=== PATIENT | female | born 1965 | race Caucasian/White ===

== ENCOUNTER → 2018-10-12 | Outpatient (CLI) | payer MEDICAID ==
--- NOTE | 2018-10-16 10:57 | MM ---
Reason for exam: screening (asymptomatic). Last mammogram was performed 2 years and 10 months ago. History: Family history of breast cancer in maternal aunt at age 50. Taking progesterone for 1 month beginning at age 52. Physical Findings: A clinical breast exam by your physician is recommended on an annual basis and results should be correlated with mammographic findings. MG 3D Screening Mammo W/Cad Bilateral CC and MLO view(s) were taken. Prior study comparison: December 14, 2015, bilateral MG 3d screening mammo w/cad. May 21, 2010, bilateral digital screening mammogram. There are scattered fibroglandular densities. There is chronic nodularity in the right breast. No significant changes when compared with prior studies. ASSESSMENT: Negative, BI-RAD 1 RECOMMENDATION: Routine screening mammogram of both breasts in 1 year.
== END | disposition home or self-care (01) ==
LOC: RADMAMWWP 12:15
PROVIDERS: ATTEND Obstetrics & Gynecology
DX: Z12.31 Encounter for screening mammogram for malignant neoplasm of breast (principal)
CPT/HCPCS: 77063; 77067

== ENCOUNTER → 2019-01-08 | Outpatient (CLI) | payer MEDICAID ==
--- NOTE | 2019-01-08 08:53 | CT ---
EXAMINATION TYPE: CT angio chest DATE OF EXAM: 01/08/2019 COMPARISON: None HISTORY: 53-year-old female abnormal echocardiogram. Bicuspid aortic valve, aneurysm of aorta. TECHNIQUE: Contiguous axial scanning of the chest performed with IV Contrast, patient injected with 1 00 mL of Isovue 370. Coronal/sagittal MIP reconstructions performed. 3-D reconstructions generated on a dedicated independent workstation. CT DLP: 591.3 mGycm Automated exposure control for dose reduction was used. FINDINGS: Heart normal size without pericardial effusion. Mild aortic valvular calcifications. The morphology is not well evaluated on the current study. Aortic root measures 3.2 cm. Ascending aorta measures 4.3 cm. Proximal arch is ectatic at 3.7 cm. Conventional branching anatomy. Distal arch measures 2.5 cm. Upper descending thoracic aorta normal at 2.4 cm. Lower descending thoracic aorta normal at 2.3 cm. No thoracic lymphadenopathy by CT size criteria. Evaluation of the lungs show some stringy areas of atelectasis without consolidation or pleural effus ion. 5 mm inferior lingular pulmonary nodule, axial image 92. Visualized upper abdomen shows a tiny hilar splenule and some possible layering calculi in the gallbl adder. Bones: Mild endplate spondylosis lower thoracic spine. No osseous destructive process. IMPRESSION: 1. MILD AORTIC VALVULAR CALCIFICATIONS. THE BICUSPID MORPHOLOGY ITSELF IS NOT WELL EVALUATED ON THIS NONGATED STUDY. 2. ANEURYSMAL ASCENDING AORTA (4.3 CM) AND ECTATIC PROXIMAL ARCH (3.7 CM). 3. 5 MM INFERIOR LINGULAR PULMONARY NODULE. SIX-MONTH FOLLOW-UP RECOMMENDED TO REASSESS.
== END | disposition home or self-care (01) ==
LOC: RADCTMAIN 07:01
PROVIDERS: ATTEND Internal Medicine Cardiovascular Disease
DX: I70.0 Atherosclerosis of aorta (principal); I77.810 Thoracic aortic ectasia; R91.1 Solitary pulmonary nodule
CPT/HCPCS: 71275; Q9967

== ENCOUNTER → 2019-07-09 | Outpatient (CLI) | payer MEDICAID ==
[2019-07-09 11:08] LABS: African American GFR (CKD) >90 (>60 ml/min/1.73 sqM); Blood Urea Nitrogen 16 mg/dL (7-17); Non-African American GFR(CKD) >90 (>60 ml/min/1.73 sqM)
--- NOTE | 2019-07-09 12:21 | CT ---
EXAMINATION TYPE: CT angio chest DATE OF EXAM: 07/09/2019 COMPARISON: 01/08/2019 HISTORY: Thoracic aneurysm without rupture CT DLP: 1110.50 mGycm. Automated Exposure Control for Dose Reduction was Utilized. CONTRAST: CTA scan of the thorax is performed without and with IV Contrast, patient injected with 100 ml mL of Isovue 370, pulmonary embolism protocol. MIP Images are created on CT scanner and reviewed. FINDINGS: LUNGS: The lungs are grossly clear, there is no concerning parenchymal mass identified. Stable 5 mm l ingular pulmonary nodule. There is no pleural effusion or pneumothorax seen. The tracheobronchial t ree is patent. MEDIASTINUM: Unenhanced images demonstrate no evidence of intramural hematoma. The ascending thoracic aorta measures approximately 4.2 cm as opposed to the prior measurement of 4.3 cm. Aortic root measu res 3.6 cm, nonenlarged. Proximal aortic arch measures 3.6 cm and is ectatic. Descending thoracic aor ta is within normal limits measuring 2.4 cm. There is a conventional branch pattern of the aortic arc h. There is satisfactory enhancement of the pulmonary artery and its branches, there is no CT evidenc e for pulmonary embolism. Mild aortic valvular calcifications again noted. There are no greater than 1 cm hilar or mediastinal lymph nodes. No cardiomegaly or pericardial effusion is seen. No signific ant coronary artery calcifications on the unenhanced images. OTHER: Cholelithiasis is seen. Hepatic steatosis is also noted in the visualized portions of the uppe r abdomen. Mild degenerative changes of the spine. IMPRESSION: 1. Stable ascending thoracic aortic aneurysm measuring 4.2 cm and proximal aortic arch ectasia measur ing 3.6 cm. 2. Stable 5 mm lingular pulmonary nodule. Follow-up in 12 months is recommended to establish continue d stability.
== END | disposition home or self-care (01) ==
LOC: RADCTMAIN 10:23
PROVIDERS: ATTEND Internal Medicine Cardiovascular Disease
DX: I71.2 Thoracic aortic aneurysm, without rupture (principal); R91.1 Solitary pulmonary nodule
CPT/HCPCS: 82565; 84520; 71275; 36415; Q9967

== ENCOUNTER 2019-12-17 06:24 | Day surgery (SDC) | payer MEDICAID ==
[2019-12-11 11:23] VITALS: BMI 39.4
[~2019-12-17 06:24] MED LIST: LACTATED RINGERS 1,000 ML IV SCH; LIDOCAINE 1% (10MG/ML) FOR IV START INTRADERMA PRN
[2019-12-17] MEDS ORDERED: SODIUM CHLORIDE 0.9% 500 ML 500 ML IV ONE (06:59)
[2019-12-17 07:01] VITALS: TEMP 98.3
[2019-12-17] MEDS ORDERED: fentaNYL (PF) 50 MCG/ML 2 ML AMP ONE (07:13)
[2019-12-17] MEDS ORDERED: BENZOCAINE SPRAY 1 CAN MUCOUS MEM ONE ×2 (07:20→07:35)
[2019-12-17] MEDS ORDERED: fentaNYL (PF) 50 MCG/ML 2 ML AMP IVP ONE (07:40)
[2019-12-17] MEDS ORDERED: MIDAZOLAM 2 MG/2 ML VIAL IVP ONE (07:40)
[2019-12-17 07:56] VITALS: RESP 20
--- NOTE | 2019-12-17 08:41 | P.TEE ---
Indications for Procedure(s): Assessment of aortic valve disease Date of Procedure: 12/17/19 Preoperative Diagnosis: Bicuspid aortic valve Postoperative Diagnosis: Bicuspid aortic valve without any significant stenosis or regurgitation Procedure(s) Performed: ALLISON Description of Procedure(s): INDICATION: Assessment of aortic valve disease CONSENT:. Verbal informed consent was obtained from the patient PROCEDURE: Patient was brought to the lab in a fasting state. She was prepped and draped in the usual fashion. Patient was given 3 mg of Versed and 62.5 g of fentanyl for sedation. The throat was sprayed with Cetacaine. A lubricated Omni probe was introduced into oropharynx and was advanced into the esophagus. Multiple views were obtained from different angles both from the stomach and esophagus. Color, pulsed and continuous Doppler study was performed. Saline Contrast injections also performed. Patient tolerated the procedure well FINDINGS:. The aortic valve is bicuspid. The valve area is about 2.2 centi meters by planimetry. No Sigmund regurgitation noted. The aortic root measured about 3.3. The mitral valve function appeared within normal. The tricuspid valve function appeared within normal. The left atrial appendage is normal without any clot. The interatrial septum is intact without any shunt. The left ventricle function is normal. The cardiac chamber sizes appear to be normal IMPRESSION:. #1. Bicuspid aortic valve without any significant stenosis or regurgitation #2. No PFO #3. No clot in the left atrial appendage #4. Left ankle function is normal. #5. The aortic root measured about 3.2 cm #6. There is no plaque in the aorta PLAN: Continue maximal medical therapy and follow with serial echoes
[2019-12-17 08:55] VITALS: BP 108/68; PULSE 76
== END 2019-12-17 08:50 | disposition home or self-care (01) ==
LOC: CATHCVL 06:24
PROVIDERS: ATTEND Internal Medicine Cardiovascular Disease
DX: Q23.1 Congenital insufficiency of aortic valve (principal); I71.2 Thoracic aortic aneurysm, without rupture; I10 Essential (primary) hypertension; I49.3 Ventricular premature depolarization; I25.10 Atherosclerotic heart disease of native coronary artery without angina pectoris; I49.40 Unspecified premature depolarization; E03.9 Hypothyroidism, unspecified; E66.9 Obesity, unspecified; Z72.0 Tobacco use; Z79.890 Hormone replacement therapy; Z79.1 Long term (current) use of non-steroidal anti-inflammatories (NSAID); Z79.899 Other long term (current) drug therapy; Z79.82 Long term (current) use of aspirin; Z68.41 Body mass index [BMI] 40.0-44.9, adult; Z82.49 Family history of ischemic heart disease and other diseases of the circulatory system
CPT/HCPCS: 93312; 93320; 93325; J2250; J3010

== ENCOUNTER → 2020-07-21 | Outpatient (CLI) | payer MEDICAID ==
--- NOTE | 2020-07-21 11:12 | CT ---
EXAMINATION TYPE: CT angio chest DATE OF EXAM: 07/21/2020 COMPARISON: 01/30/2020 HISTORY: 54-year-old female I71.2 follow up to thoracic aneurysm TECHNIQUE: Contiguous axial scanning of the chest performed with IV Contrast, patient injected with 1 00 mL of Isovue 370. Coronal/sagittal MIP reconstructions performed. 3-D reconstructions generated on a dedicated independent workstation. CT DLP: 542.2 mGycm Automated exposure control for dose reduction was used. FINDINGS: Heart upper limits of normal in size without pleural effusion. Ascending aorta mildly aneurysmal at 4.1 cm, unchanged. Conventional arch was a branching anatomy. Prominent but nonenlarged 9 mm lower right paratracheal lymph node. No thoracic lymphadenopathy by CT size criteria. Some subtle peripheral patchy groundglass densities, right greater than left are new. No consolidatio n or pleural effusion. Streaky atelectasis inferior lingula. Low attenuation of the hepatic parenchyma compatible with fatty infiltration. Small hilar splenule no beryl. Bones: Mild degenerative disc disease mid to lower thoracic spine. IMPRESSION: 1. STABLE ASCENDING AORTIC ANEURYSM AT 4.1 CM. 2. SUBTLE PERIPHERAL PATCHY GROUNDGLASS DENSITIES, RIGHT GREATER THAN LEFT, ARE NEW. QUERY RECENT COV ID PNEUMONIA. NONSPECIFIC INFECTIOUS/INFLAMMATORY FOCI ARE SUGGESTED. SOME OTHER DIFFERENTIAL CONSIDE RATIONS INCLUDE BINGO CASHIER AND HYPERSENSITIVITY PNEUMONITIS. 3. HEPATIC STEATOSIS.
== END ==
LOC: RADCTMAIN 09:31
PROVIDERS: ATTEND Internal Medicine Cardiovascular Disease
DX: I71.2 Thoracic aortic aneurysm, without rupture (principal); J98.4 Other disorders of lung
CPT/HCPCS: 71275; Q9967

== ENCOUNTER → 2021-02-01 | Outpatient (CLI) | payer MEDICAID ==
--- NOTE | 2021-02-01 10:22 | CT ---
EXAMINATION TYPE: CT angio chest DATE OF EXAM: 02/01/2021 10:10 AM COMPARISON: CTA chest July 21, 2020 and older studies HISTORY: Thoracic Aortic Aneurysm CT DLP: 462 mGycm Automated exposure control for dose reduction was used. CONTRAST: CTA scan of the thorax is performed with IV Contrast, patient injected with 100 mL of Isovue 370, ane urysm protocol. 3D reconstructed images are created on an independent workstation and reviewed.. FINDINGS: LUNGS: Mild bibasilar linear scarring and/or atelectasis. There is no pleural effusion or pneumotho rax seen. The tracheobronchial tree is patent. MEDIASTINUM: There is satisfactory enhancement of the central pulmonary arteries. Ascending aortic an eurysm up to 4.3 cm axial image 20 not significantly changed allowing for technical differences. Norm al three-vessel origin in the arch. No aneurysm in the arch or descending aorta. No significant plaqu e or stenosis. There are no new greater than 1 cm hilar or mediastinal lymph nodes. No pericardial effusion is seen. Calcifications at level of the aortic valve redemonstrated. OTHER: Visualized liver is markedly hypodense consistent with diffuse fatty infiltration. Slight sco liotic curvature. IMPRESSION: Stable 4.3 cm ascending aortic aneurysm when accounting for technical differences
== END | disposition home or self-care (01) ==
LOC: RADCTMAIN 09:04
PROVIDERS: ATTEND Internal Medicine Cardiovascular Disease
DX: I71.2 Thoracic aortic aneurysm, without rupture (principal)
CPT/HCPCS: 71275; Q9967

== ENCOUNTER → 2021-03-04 | Outpatient (CLI) | payer MEDICAID ==
--- NOTE | 2021-03-08 10:25 | MM ---
Reason for exam: screening (asymptomatic). Last mammogram was performed 2 years and 5 months ago. History: Patient is postmenopausal. Family history of breast cancer in maternal aunt at age 50. Taking progesterone beginning at age 55. Physical Findings: A clinical breast exam by your physician is recommended on an annual basis and results should be correlated with mammographic findings. MG 3D Screening Mammo W/Cad Bilateral CC and MLO view(s) were taken. XCCL view(s) were taken of the right breast. Prior study comparison: October 12, 2018, bilateral MG 3d screening mammo w/cad. December 14, 2015, bilateral MG 3d screening mammo w/cad. The breast tissue is almost entirely fat. There is chronic nodularity in the right breast. No significant changes when compared with prior studies. ASSESSMENT: Benign, BI-RAD 2 RECOMMENDATION: Routine screening mammogram of both breasts in 1 year.
== END | disposition home or self-care (01) ==
LOC: RADMAMWWP 09:44
PROVIDERS: ATTEND Family Medicine
DX: Z12.31 Encounter for screening mammogram for malignant neoplasm of breast (principal); Z80.3 Family history of malignant neoplasm of breast
CPT/HCPCS: 77063; 77067

== ENCOUNTER → 2021-07-29 | Outpatient (CLI) | payer MEDICAID ==
--- NOTE | 2021-07-29 11:38 | CT ---
EXAMINATION TYPE: CT angio chest DATE OF EXAM: 07/29/2021 COMPARISON: CT dated 02/01/2021 HISTORY: Essential htn, aortic valve disorder. CT DLP: 1344 mGy.cm. Automated Exposure Control for Dose Reduction was Utilized. TECHNIQUE AND CONTRAST: CTA scan of the thorax is performed without and with IV Contrast, patient injected with 100 mL of Iso kelly 370, thoracic aortic angiogram protocol. MIP and 3-D Images are created on an independent works tation and reviewed. FINDINGS: Stable ascending aortic aneurysm measuring up to 4.5 cm. Unremarkable remainder of the thoracic and s mall visualized part of the upper abdominal aorta. Unremarkable major mediastinal branches. The pulmo nary trunk measures 2.8 cm. No major or central pulmonary embolism. No gross cardiomegaly. Aortic janelle t calcification. No pericardial effusion. No pathologically enlarged lymph nodes in the chest. Unremarkable lungs. Patent central airways. No p leural effusion. Enlarged liver with hepatic steatosis. Thick dependent density within the gallbladde r suggestive of gallbladder calculi versus sludge. No signs of acute cholecystitis. Slightly bulky sp ananya. Mild degenerative changes of the thoracic spine. IMPRESSION: Stable ascending aortic aneurysm measuring up to 4.5 cm as described above. Recommend cardiothoracic surgery consultation if not already performed. Other incidental findings as described above.
== END | disposition home or self-care (01) ==
LOC: RADCTMAIN 09:31
PROVIDERS: ATTEND Internal Medicine Cardiovascular Disease
DX: I71.2 Thoracic aortic aneurysm, without rupture (principal); I10 Essential (primary) hypertension; E03.9 Hypothyroidism, unspecified
CPT/HCPCS: 71275; Q9967

== ENCOUNTER → 2023-04-13 | Outpatient (CLI) | payer MEDICAID ==
--- NOTE | 2023-04-17 19:18 | MM ---
Reason for Exam: Screening (asymptomatic). Last mammogram was performed 2 year(s) and 2 month(s) ago. Patient History: Menarche at age 14. First Full-Term at age 22. Postmenopausal. Patient has history of breast feeding. Currently using Progesterone, starting at age 55. Maternal aunt had breast cancer, age 50. Risk Values: Diane 5 year model risk: 1.1%. NCI Lifetime model risk: 7.4%. Prior Study Comparison: 12/14/2015 Bilateral Screening Mammogram, [facility]. 10/12/2018 Bilateral Screening Mammogram, [facility]. 03/04/2021 Bilateral Screening Mammogram, [facility]. Tissue Density: There are scattered fibroglandular densities. Findings: Analyzed By CAD. Chronic nodularity on the right. There is no suspicious group of microcalcifications or new suspicious mass in either breast. Overall Assessment: Benign, BI-RAD 2 Management: Screening Mammogram of both breasts in 1 year. . Patient should continue monthly self-breast exams. A clinical breast exam by your physician is recommended on an annual basis. This exam should not preclude additional follow-up of suspicious palpable abnormalities. Note on Diane scores and lifetime risk: 1. A Diane score greater than 3% is considered moderate risk. If this is the case, consider specialist referral to assess eligibility for a risk reducing agent. 2. If overall lifetime risk for the development of breast cancer is 20% or higher, the patient may qualify for future screening with alternating mammogram and breast MRI. Electronically signed and approved by: Maicol Clement M.D. Radiologist
== END | disposition home or self-care (01) ==
LOC: RADMAMWWP 12:34
PROVIDERS: ATTEND Obstetrics & Gynecology
DX: Z12.31 Encounter for screening mammogram for malignant neoplasm of breast (principal); Z78.0 Asymptomatic menopausal state; Z80.3 Family history of malignant neoplasm of breast
CPT/HCPCS: 77063; 77067

== ENCOUNTER 2023-06-16 11:30 | Day surgery (SDC) | payer MEDICAID ==
[2023-06-14 15:14] VITALS: BMI 39.4
[~2023-06-16 11:30] MED LIST changes: -LIDOCAINE 1% (10MG/ML) FOR IV START INTRADERMA PRN
[2023-06-16] MEDS: LACTATED RINGERS 1,000 ML IV ONE (12:30)
[2023-06-16 13:07] VITALS: TEMP 97.4
[2023-06-16] MEDS ORDERED: PROPOFOL 10 MG/ML 20 ML VIAL IV ONE (13:36)
[2023-06-16] MEDS ORDERED: LIDOCAINE 1% INJ 10MG/ML (20 ML MDV) ONE (13:36)
--- NOTE | 2023-06-16 14:03 | P.PCN ---
Date of Procedure: 06/16/23 Procedure(s) Performed: BRIEF HISTORY: Patient is a 57-year-old pleasant white female scheduled for an elective colonoscopy as a part of screening for colon cancer. PROCEDURE PERFORMED: Colonoscopy with snare polypectomy. PREOPERATIVE DIAGNOSIS: Screening for colon cancer. IV sedation per Anesthesia. PROCEDURE: After informed consent was obtained, the patient, was brought into the endoscopy unit. IV sedation was administered by Anesthesia under continuous monitoring. Digital rectal examination was normal. Initially the Olympus CF-160 flexible video colonoscope was then inserted in the rectum, gradually advanced into the cecum without any difficulty. Careful examination was performed as the scope was gradually being withdrawn. Ileocecal valve and the appendiceal orifice were visualized and appeared normal. Prep was excellent. Mucosa of the cecum, ascending colon, transverse colon, appeared normal. In the descending colon there was a 7 mm sessile polyp removed by cold snare polypectomy. Scattered left sided diverticulosis. Rest of the descending colon, sigmoid colon, and rectum appeared normal. Retroflexion was performed in the rectum and no lesions were seen. The patient tolerated the procedure well. IMPRESSION: 7 mm descending colon polyp status post cold snare polypectomy Scattered sigmoid diverticulosis RECOMMENDATIONS: Findings of this examination were discussed with the patient as well as a family.. She was advised to follow up with the biopsy results. If the biopsy result adenoma she can have a repeat coloscopy in 5 years.
[2023-06-16 14:36] VITALS: BP 118/81; PULSE 79; RESP 16
== END 2023-06-16 14:40 | disposition home or self-care (01) ==
LOC: ORWHC2ENDO 11:30
PROVIDERS: ATTEND Internal Medicine Gastroenterology
DX: Z12.11 Encounter for screening for malignant neoplasm of colon (principal); D12.4 Benign neoplasm of descending colon; K57.30 Diverticulosis of large intestine without perforation or abscess without bleeding; E66.01 Morbid (severe) obesity due to excess calories; E07.9 Disorder of thyroid, unspecified; K21.9 Gastro-esophageal reflux disease without esophagitis; Z79.890 Hormone replacement therapy; Z79.899 Other long term (current) drug therapy; Z68.39 Body mass index [BMI] 39.0-39.9, adult
CPT/HCPCS: 88305; 45385; J2001; J2704

== ENCOUNTER → 2023-08-24 | Outpatient (CLI) | payer MEDICAID ==
--- NOTE | 2023-08-24 13:47 | CT ---
EXAMINATION TYPE: CT angio chest DATE OF EXAM: 08/24/2023 10:19 AM COMPARISON: 07/07/2022 HISTORY: Thoracic aortic aneurysm w/out rupture follow up Hx bicuspid valve issues CT DLP: 1085.50 mGycm Automated exposure control for dose reduction was used. CONTRAST: CTA scan of the thorax is performed with IV Contrast, patient injected with 100 mL of Isovue 300, pul monary embolism protocol. 3-D postprocessing was performed. FINDINGS: There is a stable 6.5 mm lingular nodule. No new or suspicious lung mass or nodule seen. There is no abnormal airspace last consolidated density or abnormal interstitial density. There is no pleural effusion, pleural thickening or pneumothorax. There is stable mild possibly moderate cardiomegaly. There is a stable 4.3 cm ascending thoracic aortic aneurysm. There is no filling defect within the pulmonary arteries or segmental branches to suggest pulmonary e mbolism. There is no mediastinal, hilar or axillary adenopathy. Limited scanning through the upper abdomen reveals cholelithiasis. No focal osseous lesions are seen. IMPRESSION: 1. Stable 4.3 cm ascending thoracic aortic aneurysm. 2. Stable 6.5 mm left lingular pulmonary nodule. 3. No pulmonary embolus. 4. No acute cardiopulmonary disease. 5. Stable cholelithiasis.
== END | disposition home or self-care (01) ==
LOC: RADCTMAIN 09:01
PROVIDERS: ATTEND Internal Medicine Interventional Cardiology
DX: I71.21 Aneurysm of the ascending aorta, without rupture (principal); R91.1 Solitary pulmonary nodule; K80.20 Calculus of gallbladder without cholecystitis without obstruction
CPT/HCPCS: 71275; Q9967

== ENCOUNTER → 2024-08-01 | Outpatient (CLI) | payer MEDICAID ==
--- NOTE | 2024-08-01 09:31 | CT ---
EXAMINATION TYPE: CT angio chest CT DLP: 885 mGycm, Automated exposure control for dose reduction was used. DATE OF EXAM: 08/01/2024 9:13 AM COMPARISON: Multiple CTA Chest with most recent 08/24/2023. CLINICAL INDICATION:Female, 58 years old with history of I71.2 thoracic aneurysm; Thoracic Aortic Ane urysm TECHNIQUE/CONTRAST: CTA scan of the thorax is performed without and with IV Contrast, patient injected with 100 ml mL of Isovue 370. MIP images are created and reviewed. FINDINGS: Lungs/Pleura: No evidence of focal consolidation, pleural effusion or pneumothorax. Linear scarring a nd/or atelectasis within the lingula. Stable lingular 5 mm pulmonary nodule. Airway: Large airways are patent. Heart: Mildly enlarged. Moderate aortic valvular calcifications.No pericardial effusion. No significa nt coronary artery calcifications. Vasculature: Conventional three-vessel aortic arch. No evidence for intramural hematoma or dissection . Stable aneurysmal dilatation of the ascending thoracic aorta measuring 4.3 cm. The aortic root joe ures up to 3.3 cm. The descending thoracic aorta measures up to 2.6 cm. The celiac axis, SMA, and elisabeth ateral single renal arteries are widely patent. No evidence for pulmonary embolism. Mediastinum: No evidence of adenopathy. Musculoskeletal: No acute osseous abnormalities Soft Tissues: Unremarkable. Lower neck: No significant findings. Upper Abdomen: Diffuse low-attenuation to the liver parenchyma. Cholelithiasis with a gallstone measu ring up to 1.7 cm. IMPRESSION: 1. Stable aneurysmal dilatation of the ascending aorta measuring up to 4.3 cm. No evidence for intra parenchymal hematoma or dissection. 2. Stable lingular 5 mm pulmonary nodule dating back to 2019 and considered benign. 3. Hepatic steatosis. 4. Cholelithiasis. [facility], , 08/01/2024 9:28 AM
== END | disposition home or self-care (01) ==
LOC: RADCTMAIN 07:44
PROVIDERS: ATTEND Internal Medicine Interventional Cardiology
DX: I71.21 Aneurysm of the ascending aorta, without rupture (principal); R91.1 Solitary pulmonary nodule; K76.0 Fatty (change of) liver, not elsewhere classified; K80.20 Calculus of gallbladder without cholecystitis without obstruction
CPT/HCPCS: 71275; Q9967

== ENCOUNTER 2024-08-02 00:20 | Observation (INO) | payer MEDICAID ==
[2024-08-02 00:30] VITALS: TEMP 97.8
[2024-08-02] MEDS: ASPIRIN 81 MG PO STA (01:04)
[2024-08-02] MEDS: NITROGLYCERIN OINT 1 INCH/GM PACKET TOPICAL STA (01:07)
[2024-08-02] MEDS: MORPHINE SULFATE 4 MG/ML SYRINGE IV STA ×2 (01:07→03:16)
[2024-08-02 01:08] LABS: Basophils # (A) 0.1 k/uL (0-0.2); Basophils % (A) 1 %; Eosinophils # (A) 0.3 k/uL (0-0.7); Eosinophils % (A) 4 %; HCT 44.5 % (34.0-46.0); HGB 14.7 gm/dL (11.4-16.0); Lymphocytes # (A) 3.1 k/uL (1.0-4.8); Lymphocytes % (A) 36 %; MCH 32.3 pg (25.0-35.0); Mean Platelet Volume 7.4; Monocytes # (A) 0.4 k/uL (0-1.0); Monocytes % (A) 5 %; Neutrophils # (A) 4.5 k/uL (1.3-7.7); Neutrophils % (A) 53 %; Platelet Count 228 k/uL (150-450); RBC 4.55 m/uL (3.80-5.40); RDW 12.8 % (11.5-15.5); WBC 8.6 k/uL (3.8-10.6)
[2024-08-02 01:33] LABS: INR 0.9 (<1.2); Partial Thromboplastin Time 23.2 sec (22.0-30.0); Prothrombin Time 10.3 sec (10.0-12.5)
[2024-08-02 01:38] LABS: ALT 35 U/L (4-34); AST 36 U/L (14-36); African American GFR (CKD) >90 (>60 ml/min/1.73 sqM); Albumin 4.6 g/dL (3.5-5.0); Alkaline Phosphatase 75 U/L (38-126); Amylase 45 U/L (30-110); Anion Gap 13 mmol/L; Blood Urea Nitrogen 9 mg/dL (7-17); Carbon Dioxide 25 mmol/L (22-30); Chloride 105 mmol/L (98-107); Glucose 129 mg/dL (74-99); Lipase 109 U/L (23-300); Non-African American GFR(CKD) >90 (>60 ml/min/1.73 sqM); Sodium 143 mmol/L (137-145); Total Bilirubin 0.4 mg/dL (0.2-1.3); Total Protein 7.7 g/dL (6.3-8.2)
[2024-08-02 01:46] LABS: NT-Pro-B-Type Natriuretic Pept 66 pg/mL
[2024-08-02 01:57] LABS: Influenza A Not Detected (Not Detectd); Influenza B Not Detected (Not Detectd); RSV Not Detected (Not Detectd)
--- NOTE | 2024-08-02 03:24 | XR ---
EXAM: XR Chest, 2 Views CLINICAL HISTORY: ITS.REASON XR Reason: Chest Pain TECHNIQUE: Frontal and lateral views of the chest. COMPARISON: No relevant prior studies available. FINDINGS: Lungs: Unremarkable. No consolidation. Pleural space: Unremarkable. No pneumothorax. Heart: Unremarkable. No cardiomegaly. Mediastinum: Unremarkable. Bones/joints: Unremarkable. IMPRESSION: No consolidation.
[2024-08-02] MEDS ORDERED: NITROGLYCERIN SL TABS 0.4 MG TAB SUBLINGUAL PRN (04:21)
--- NOTE | 2024-08-02 05:00 | ED ---
Chest Pain HPI - General Chief Complaint: Chest Pain Stated Complaint: Chest Pain Time Seen by Provider: 08/02/24 00:44 Source: patient Mode of arrival: ambulatory Limitations: no limitations - History of Present Illness Initial Comments: This patient is 58-year-old woman with history of thoracic aortic aneurysm, who presents with acute onset of substernal chest pain this evening. The patient states that associated with the pain she also had some vomiting and she was feeling short of breath. The patient does note that in the morning she had a CT scan as routine surveillance for the aneurysm. The pain came on at rest. No trauma. She does note that symptoms have improved somewhat from when they were at their maximum. MD Complaint: chest pain Onset/Timin -: hour(s) Onset: during rest Pain Location: substernal Pain Radiation: none Severity: severe Quality: tightness Consistency: constant Improves With: nothing Worsens With: nothing Anginal Symptoms: nausea, vomiting, dyspnea Treatments Prior to Arrival: none - Related Data Home Medications Medication Instructions Recorded Confirmed Levothyroxine Sodium [Synthroid] 200 mcg PO QAM 04/13/17 08/02/24 Omeprazole 20 mg PO DAILY 04/13/17 08/02/24 Aspirin [Adult Low Dose Aspirin EC] 81 mg PO DAILY 12/11/19 08/02/24 Metoprolol Tartrate 25 mg PO BID 12/11/19 08/02/24 Estradiol 0.05MG/24Hr Biwkptch 1 patch TRANSDERM Q3D 06/14/23 08/02/24 [Vivelle-Dot 0.05 MG] Progesterone, Micronized 200 mg PO HS 06/14/23 08/02/24 [Progesterone] Cholecalciferol (Vitamin D3) 75 mcg PO DAILY 08/02/24 08/02/24 [Vitamin D3 (3000 Iu)] I Caps 1 tab PO DAILY 08/02/24 08/02/24 Allergies Allergy/AdvReac Type Severity Reaction Status Date / Time acetaminophen [From Vicodin] AdvReac Vomiting Verified 08/02/24 07:33 hydrocodone [From Vicodin] AdvReac Vomiting Verified 08/02/24 07:33 Review of Systems ROS Statement: Those systems with pertinent positive or pertinent negative responses have been documented in the HPI. ROS Other: All systems not noted in ROS Statement are negative. Constitutional: Denies: fever, chills, weakness Respiratory: Reports: dyspnea. Denies: cough, hemoptysis Cardiovascular: Reports: chest pain, palpitations. Denies: orthopnea, edema, syncope Gastrointestinal: Reports: nausea, vomiting. Denies: abdominal pain, diarrhea Genitourinary: Denies: dysuria, hematuria Musculoskeletal: Denies: back pain Skin: Denies: rash Neurological: Denies: headache, weakness, numbness EKG Findings - EKG Results: EKG: interpreted by ERMD, sinus rhythm, normal axis, normal QRS EKG shows: tachycardia (Rate 106 bpm) - Blocks, [place], Hypertrophy, ST Abn: Repolarization changes or abnormalities: nonspecific abnormality, ST segment, and/or T wave Past Medical History Past Medical History: GERD/Reflux, Hypertension, Thyroid Disorder Additional Past Medical History / Comment(s): ascending aortic aneursym. bicupsid valve. graves disease History of Any Multi-Drug Resistant Organisms: None Reported Past Surgical History: Tubal Ligation, Uterine Ablation Past Anesthesia/Blood Transfusion Reactions: Motion Sickness Past Psychological History: No Psychological Hx Reported Smoking Status: Former smoker Past Alcohol Use History: Occasional Past Drug Use History: None Reported - Past Family History Mother Family Medical History: Deep Vein Thrombosis (DVT) General Exam Limitations: no limitations General appearance: alert, in no apparent distress, anxious Head exam: Present: atraumatic, normocephalic Eye exam: Present: normal appearance. Absent: scleral icterus, conjunctival injection ENT exam: Present: normal oropharynx Neck exam: Present: normal inspection Respiratory exam: Present: normal lung sounds bilaterally. Absent: respiratory distress, wheezes, rales, rhonchi, stridor, accessory muscle use Cardiovascular Exam: Present: regular rate, normal rhythm, normal heart sounds. Absent: systolic murmur, diastolic murmur, rubs, gallop GI/Abdominal exam: Present: soft. Absent: distended, tenderness, guarding, rebound, rigid, mass Extremities exam: Present: normal inspection, normal capillary refill. Absent: pedal edema, calf tenderness Back exam: Present: normal inspection. Absent: CVA tenderness (R), CVA tenderness (L) Neurological exam: Present: alert Skin exam: Present: warm, dry, intact, normal color. Absent: rash Course Vital Signs 08/02/24 08/02/24 08/02/24 00:26 00:39 02:08 Temperature 97.8 F Pulse Rate 112 H 87 Pulse Rate [ 104 H Left Sitting Radial] Respiratory 26 H 18 Rate Blood Pressure 136/82 138/89 O2 Sat by Pulse 96 96 Oximetry 08/02/24 08/02/24 08/02/24 04:00 05:00 08:58 Temperature Pulse Rate 94 92 82 Pulse Rate [ Left Sitting Radial] Respiratory 18 18 17 Rate Blood Pressure 113/82 109/73 102/73 O2 Sat by Pulse 97 95 99 Oximetry 08/02/24 08/02/24 12:12 14:01 Temperature Pulse Rate 70 77 Pulse Rate [ Left Sitting Radial] Respiratory 16 16 Rate Blood Pressure 119/82 124/89 O2 Sat by Pulse 97 98 Oximetry Chest Pain MDM - MDM The patient had chest x-ray that I interpreted as negative for acute infiltrate, pneumothorax, congestive heart failure Was pt. sent in by a medical professional or institution ( PA, DRAW TENDER, urgent care, hospital, or senior living...) When possible be specific @ -[No] Did you speak to anyone other than the patient for history (EMS, parent, family, police, friend...)? What history was obtained from this source @ -[No] Did you review nursing and triage notes (agree or disagree)? Why? @ -[I reviewed and agree with nursing and triage notes] Were old charts reviewed (outside hosp., previous admission, EMS record, old EKG, old radiological studies, urgent care reports/EKG's, senior living records)? Report findings @ -[No old charts were reviewed] Differential Diagnosis (chest pain, altered mental status, abdominal pain women, abdominal pain men, vaginal bleeding, weakness, fever, dyspnea, syncope, headache, dizziness, GI bleed, back pain, seizure, CVA, palpatations, mental health, musculoskeletal)? @ -[Differential Chest Pain: Stable Angina, Unstable Angina, STEMI, NSTEMI Aortic Dissection, Pneumothorax, Musculoskeletal, Esophageal Spasm GERD, Cholecystitis, Pancreatitis, Zoster, this is not meant to be an all-inclusive list. EKG interpreted by me (3pts min.). @ -[I interpreted as above] X-rays interpreted by me (1pt min.). @ -[I interpreted as above CT interpreted by me (1pt min.). @ -[None done] U/S interpreted by me (1pt. min.). @ -[None done] What testing was considered but not performed or refused? (CT, X-rays, U/S, labs)? Why? @ -[None] What meds were considered but not given or refused? Why? @ -[None] Did you discuss the management of the patient with other professionals (professionals i.e. , PA, DRAW TENDER, lab, RT, psych nurse, social services designee, binding cutter synthetic cloth, teacher, railroad police officer, protective services case worker)? Give summary @ -[No] Was smoking cessation discussed for >3mins.? @ -[No] Was critical care preformed (if so, how long)? @ -[No] Were there social determinants of health that impacted care today? How? (Homelessness, low income, unemployed, alcoholism, drug addiction, transportation, low edu. Level, literacy, decrease access to med. care, fpc, rehab)? @ -[No] Was there de-escalation of care discussed even if they declined (Discuss DNR or withdrawal of care, Hospice)? DNR status @ -[No] What co-morbidities impacted this encounter? (DM, HTN, Smoking, COPD, CAD, Cancer, CVA, ARF, Chemo, Hep., AIDS, mental health diagnosis, sleep apnea, morbid obesity)? @ -[History of thoracic aneurysm Was patient admitted / discharged? Hospital course, mention meds given and route, prescriptions, significant lab abnormalities, going to OR and other pertinent info. @ -[Patient is a 58-year-old woman with chest pain will be admitted to have serial cardiac enzymes, telemetry monitoring, cardiology consultation. Undiagnosed new problem with uncertain prognosis? @ -[No] Drug Therapy requiring intensive monitoring for toxicity (Heparin, Nitro, Insulin, Cardizem)? @ -[No] Were any procedures done? @ -[No] Diagnosis/symptom? @ -[Acute chest pain Acute, or Chronic, or Acute on Chronic? @ -[Acute Uncomplicated (without systemic symptoms) or Complicated (systemic symptoms)? @ -[Uncomplicated Side effects of treatment? @ -[No] Exacerbation, Progression, or Severe Exacerbation? @ -[No] Poses a threat to life or bodily function? How? (Chest pain, [place], [place], pneumonia, PE, COPD, DKA, ARF, appy, cholecystitis, CVA, Diverticulitis, Homicidal, Suicidal, threat to staff... and all critical care pts) @ -[Low risk but does require further cardiology evaluation All treatments are based on ideal body weight as in ED triage Disposition Clinical Impression: Chest pain Disposition: ADMITTED IP TO THIS HOSP Condition: Stable Is patient prescribed a controlled substance at d/c from ED?: No
[2024-08-02] MEDS ORDERED: REGADENOSON 0.4 MG/5 ML SYRINGE IV PRN (08:32)
[2024-08-02] MEDS ORDERED: CAFFEINE CITRATE 60 MG/3 ML VIAL IV PRN (08:32)
[2024-08-02] MEDS ORDERED: AMINOPHYLLINE 500 MG/20 ML VIAL IV PRN (08:32)
[2024-08-02] MEDS: METOPROLOL TARTRATE 25 MG TAB PO SCH (08:55)
[2024-08-02] MEDS: PANTOPRAZOLE 40 MG TABLET PO SCH (08:55)
[2024-08-02] MEDS: ASPIRIN 81 MG PO SCH (08:55)
[2024-08-02] MEDS: LEVOTHYROXINE 125 MCG TAB PO SCH (08:56)
[2024-08-02] MEDS ORDERED: DEXTROSE 50% SYRINGE 50 ML IVP PRN ×2 (09:22)
--- NOTE | 2024-08-02 09:26 | P.HPIM ---
History of Present Illness H&P Date: 08/02/24 Chief Complaint: chest pain Patient is a 58-year-old female with history of thoracic aortic aneurysm, bicuspid aortic valve, Graves' disease, GERD presented to the ER complaining of substernal chest pain which woke her up midnight. Patient described pain as pressure type, 8/10, nonradiating, no alleviating or aggravating factors associated with shortness of breath or diaphoresis as well as nausea. Patient reports no previous episodes of chest pain. Patient denies any history of CAD and or CVA. Patient denies orthopnea, PND, swelling of legs. She follows up with Dr. Huerta for thoracic aortic aneurysm and bicuspid aortic wall. Earlier during the day yesterday patient had a CT angio of the chest for thoracic aortic aneurysm surveillance. CT of the chest show stable 4.3 cm thoracic aortic aneurysm with no evidence of intraperitoneal hematoma or dissection. At the time of the interview, her chest pain is 3/10 with no shortness of breath although she is on 3 L of oxygen via nasal cannula. Patient to undergo stress echocardiogram later in the day. Patient denies use of illicit drug. She is a former smoker quit 20 years ago but before that was smoking half a pack a day for 10 years. Patient admits to drinking 2 glasses of wine at least 3-4 times a week. Patient denies any withdrawal symptoms such as acute vision changes, tremors, auditory, visual, t actile hallucination. Family history is positive for CAD in grandfather. Initial laboratory evaluation in the ER shows WBC 8.6, hemoglobin 14.7, platelet count 228, sodium 143, potassium 4.0, chloride 105, BUN 9, creatinine 0.65, glucose 129, AST 36, ALT 35, ALP 75, troponin I less than 0.012 (repeat value less than 0.012), NT proBNP 66, TSH 2.09 Chest x-ray shows no acute cardiac pulmonary process. EKG shows sinus tachycardia with ventricular rate of 106 bpm, MD interval 174 ms, QRS duration 91 ms, QTc 386 ms. Review of systems: Pertinent positives and negatives as discussed in HPI, a complete review of systems was performed and all other systems are negative. Social history: As above in HPI Family History: As above in HPI Physical examination: Vital signs reviewed General: non toxic, no distress, appears at stated age, overweight Cardiovascular: S1S2 reg, no murmur, positive dorsalis pedis pulse bilateral, no edema Lungs: CTA bilateral, no rhonchi, no rales, no accessory muscle use Abdominal: soft, nontender to palpation, no guarding Ext: muscle strength 5 out of 5 in all 4 extremities grossly, no gross muscle atrophy, no contractures, Psych: Alert, oriented, appropriate affect Assessment/Plan: This is a Patient is a 58-year-old female with history of thoracic aortic ane urysm, bicuspid aortic valve, Graves' disease, GERD presented to the ER complaining of substernal chest pain which woke her up midnight. . Case was discussed with the Emergency Room provider and decision was made to admit the patient for chest pain, rule out ACS Labs and images: Initial laboratory evaluation in the ER shows WBC 8.6, hemoglobin 14.7, platelet count 228, sodium 143, potassium 4.0, chloride 105, BUN 9, creatinine 0.65, glucose 129, AST 36, ALT 35, ALP 75, troponin I less than 0.012 (repeat value less than 0.012), NT proBNP 66, TSH 2.09 Chest x-ray shows no acute cardiac pulmonary process. EKG shows sinus tachycardia with ventricular rate of 106 bpm, MD interval 174 ms, QRS duration 91 ms, QTc [address] of the chest show stable 4.3 cm thoracic aortic aneurysm with no evidence of intraperitoneal hematoma or dissection. Active: #Chest pain, rule out ACS Heart score: Low score with risk of Mace of 0.9 to 1.7% Received aspirin 325 mg ED Continue with aspirin 81 mg p.o. daily IV morphine as needed for pain Oxygen therapy as needed Continue cardiac telemetry Consult cardiology Order Lexiscan stress test Order lipid panel and TSH #Hyperglycemia Sliding scale insulin and Accu-Chek Order HbA1c Monitor for hypoglycemia Chronic conditions Graves' disease, GERD Resume home medications Monitor CBC and BMP tomorrow a.m. DVT prophylaxis: SCDs GI prophylaxis: Protonix 40 mg p.o. daily F: As needed E: Replete as needed N: Heart healthy diet A: Ambulatory The patient is admitted with an anticipated less than 2 midnight stay for evaluation of chest pain, rule out ACS CODE STATUS: Full code Discussed with: Patient Anticipated discharge place: Pending clinical course Dictation was produced using Octroation software. Please excuse any grammatical, word or spelling errors. Past Medical History Past Medical History: GERD/Reflux, Hypertension, Thyroid Disorder Additional Past Medical History / Comment(s): ascending aortic aneursym. bicupsid valve. graves disease History of Any Multi-Drug Resistant Organisms: None Reported Past Surgical History: Tubal Ligation, Uterine Ablation Past Anesthesia/Blood Transfusion Reactions: Motion Sickness Past Psychological History: No Psychological Hx Reported Smoking Status: Former smoker Past Alcohol Use History: Occasional Past Drug Use History: None Reported - Past Family History Mother Family Medical History: Deep Vein Thrombosis (DVT) Medications and Allergies Home Medications Medication Instructions Recorded Confirmed Type Levothyroxine Sodium [Synthroid] 200 mcg PO QAM 04/13/17 08/02/24 History Omeprazole 20 mg PO DAILY 04/13/17 08/02/24 History Aspirin [Adult Low Dose Aspirin EC] 81 mg PO DAILY 12/11/19 08/02/24 History Metoprolol Tartrate 25 mg PO BID 12/11/19 08/02/24 History Estradiol 0.05MG/24Hr Biwkptch 1 patch TRANSDERM Q3D 06/14/23 08/02/24 History [Vivelle-Dot 0.05 MG] Progesterone, Micronized 200 mg PO HS 06/14/23 08/02/24 History [Progesterone] Cholecalciferol (Vitamin D3) 75 mcg PO DAILY 08/02/24 08/02/24 History [Vitamin D3 (3000 Iu)] I Caps 1 tab PO DAILY 08/02/24 08/02/24 History Allergies Allergy/AdvReac Type Severity Reaction Status Date / Time acetaminophen [From Vicodin] AdvReac Vomiting Verified 08/02/24 07:33 hydrocodone [From Vicodin] AdvReac Vomiting Verified 08/02/24 07:33 Physical Exam Vitals: Vital Signs Temp Pulse Pulse Resp BP Pulse Ox 08/02/24 05:00 92 18 109/73 95 08/02/24 04:00 94 18 113/82 97 08/02/24 02:08 87 18 138/89 96 08/02/24 00:39 104 H 08/02/24 00:26 97.8 F 112 H 26 H 136/82 96 Intake and Output 08/01/24 08/02/24 08/02/24 22:59 06:59 14:59 Other: Weight 99.79 kg Results CBC & Chem 7: 08/02/24 00:58 08/02/24 00:58 Labs: Abnormal Lab Results - Last 24 Hours (Table) 08/02/24 Range/Units 00:58 Glucose 129 H (74-99) mg/dL ALT 35 H (4-34) U/L
--- NOTE | 2024-08-02 10:38 | P.CRDCN ---
History of Present Illness History of present illness: HISTORY OF PRESENT ILLNESS: This is a 58-year-old female with a past medical history significant for bicuspid aortic valve and thoracic aortic aneurysm. Patient follows in the office with Dr. Huerta. We have been asked to see the patient in consultation for chest pain. Patient examined at the bedside in the emergency room. Patient states that she woke up last night and was nauseated and had episodes of vomiting. She states after that she became short of breath and started having chest discomfort. She states that she has not had pain like this before. At the time of examination she complains that her chest feels heavy but improved from when she first came in. She denies any known history of CAD. Vital signs are stable. DIAGNOSTICS: - EKG reveals sinus mechanism with T wave inversions inferiorly and also in V2V3 with ST depression in V4V5. - Chest xray negative for acute process. - Laboratory data: WBC 8.6. Hemoglobin 14.7. Platelet count 228. D-dimer 0.26. Sodium 143. Potassium 4.0. BUN 9. Creatinine 0.65. Magnesium 2.0. Troponin negative x 3. TSH 2.090. - Current home cardiac medications include metoprolol tartrate 25 mg twice a day and aspirin 81 mg daily. - Most recent echocardiogram obtained in July 25, 2024 revealed ejection fraction 55 to 60%, bicuspid aortic valve with moderate aortic stenosis, mild MR, mild TR - Cardiac catheterization history: Patient denies REVIEW OF SYSTEMS: At the time of my exam: CONSTITUTIONAL: Denies fever or chills. HEENT: Denies blurred vision, vision changes, or eye pain. Denies hemoptysis CARDIOVASCULAR: Denies chest pain. Denies orthopnea. Denies PND. Denies palpitations RESPIRATORY: Denies shortness of breath. GASTROINTESTINAL: Denies abdominal pain. Denies nausea or vomiting. HEMATOLOGIC: Denies bleeding disorders. GENITOURINARY: Denies any blood in urine. SKIN: Denies pruitis. Denies rash. PHYSICAL EXAM: VITAL SIGNS: Reviewed. GENERAL: Well-developed in no acute distress. HEENT: Head is normocephalic. Pupils are equal, round. Sclerae anicteric. Mucous membranes of the mouth are moist. Neck supple. No JVD or thyromegaly LUNGS: Respirations even and unlabored. Lungs essentially clear to auscultation bilaterally. HEART: Regular rate and rhythm. S1 and S2 heard. ABDOMEN: Soft. Nondistended. Nontender. EXTREMITIES: Normal range of motion. No clubbing or cyanosis. Peripheral pulse s intact. No lower extremity edema NEUROLOGIC: Awake and alert. Oriented x 3. ASSESSMENT: Chest pain, troponin negative x 3 History of bicuspid aortic valve with moderate aortic stenosis Mild to moderate mitral regurgitation Thoracic aortic aneurysm, measuring 4.3 cm PLAN: An acute coronary event has been ruled out No need to repeat echocardiogram as this was performed in the office in July 2024 Resume home cardiac medications Patient to undergo Lexiscan stress test today If negative, she may be discharged home from a cardiac standpoint Nurse practitioner note has been reviewed by physician. Signing provider agrees with the documented findings, assessment, and plan of care documented by FOOD AND BEVERAGE CONTROLLER as a scribe. Past Medical History Past Medical History: GERD/Reflux, Hypertension, Thyroid Disorder Additional Past Medical History / Comment(s): ascending aortic aneursym. bicupsid valve. graves disease History of Any Multi-Drug Resistant Organisms: None Reported Past Surgical History: Tubal Ligation, Uterine Ablation Past Anesthesia/Blood Transfusion Reactions: Motion Sickness Past Psychological History: No Psychological Hx Reported Smoking Status: Former smoker Past Alcohol Use History: Occasional Past Drug Use History: None Reported - Past Family History Mother Family Medical History: Deep Vein Thrombosis (DVT) Medications and Allergies Home Medications Medication Instructions Recorded Confirmed Type Levothyroxine Sodium [Synthroid] 200 mcg PO QAM 04/13/17 08/02/24 History Omeprazole 20 mg PO DAILY 04/13/17 08/02/24 History Aspirin [Adult Low Dose Aspirin EC] 81 mg PO DAILY 12/11/19 08/02/24 History Metoprolol Tartrate 25 mg PO BID 12/11/19 08/02/24 History Estradiol 0.05MG/24Hr Biwkptch 1 patch TRANSDERM Q3D 06/14/23 08/02/24 History [Vivelle-Dot 0.05 MG] Progesterone, Micronized 200 mg PO HS 06/14/23 08/02/24 History [Progesterone] Cholecalciferol (Vitamin D3) 75 mcg PO DAILY 08/02/24 08/02/24 History [Vitamin D3 (3000 Iu)] I Caps 1 tab PO DAILY 08/02/24 08/02/24 History Allergies Allergy/AdvReac Type Severity Reaction Status Date / Time acetaminophen [From Vicodin] AdvReac Vomiting Verified 08/02/24 07:33 hydrocodone [From Vicodin] AdvReac Vomiting Verified 08/02/24 07:33 Physical Exam Vitals: Vital Signs Temp Pulse Pulse Resp BP Pulse Ox 08/02/24 05:00 92 18 109/73 95 08/02/24 04:00 94 18 113/82 97 08/02/24 02:08 87 18 138/89 96 08/02/24 00:39 104 H 08/02/24 00:26 97.8 F 112 H 26 H 136/82 96 Intake and Output 08/01/24 08/02/24 08/02/24 22:59 06:59 14:59 Other: Weight 99.79 kg Results 08/02/24 00:58 08/02/24 00:58 Cardiac Enzymes 08/02/24 08/02/24 08/02/24 Range/Units 00:58 00:58 05:45 AST 36 (14-36) U/L Troponin I <0.012 <0.012 (0.000-0.034) ng/mL Coagulation 08/02/24 Range/Units 00:58 PT 10.3 (10.0-12.5) sec APTT 23.2 (22.0-30.0) sec CBC 08/02/24 Range/Units 00:58 WBC 8.6 (3.8-10.6) k/uL RBC 4.55 (3.80-5.40) m/uL Hgb 14.7 (11.4-16.0) gm/dL Hct 44.5 (34.0-46.0) % Plt Count 228 (150-450) k/uL Comprehensive Metabolic Panel 08/02/24 Range/Units 00:58 Sodium 143 (137-145) mmol/L Potassium 4.0 (3.5-5.1) mmol/L Chloride 105 (98-107) mmol/L Carbon Dioxide 25 (22-30) mmol/L BUN 9 (7-17) mg/dL Creatinine 0.65 (0.52-1.04) mg/dL Glucose 129 H (74-99) mg/dL Calcium 10.0 (8.4-10.2) mg/dL AST 36 (14-36) U/L ALT 35 H (4-34) U/L Alkaline Phosphatase 75 (38-126) U/L Total Protein 7.7 (6.3-8.2) g/dL Albumin 4.6 (3.5-5.0) g/dL Current Medications Generic Name Dose Route Start Last Admin Trade Name Freq PRN Reason Stop Dose Admin Aspirin 81 mg 08/02/24 09:00 Aspirin 81 Mg PO DAILY FELTON Levothyroxine Sodium 250 mcg 08/02/24 06:30 Levothyroxine 125 Mcg Tab PO DAILY@0630 FELTON Metoprolol Tartrate 25 mg 08/02/24 09:00 Metoprolol Tartrate 25 Mg Tab PO DAILY FELTON Nitroglycerin 0.4 mg 08/02/24 04:21 Nitroglycerin Sl Tabs 0.4 Mg Tab SUBLINGUAL Q5M PRN Chest Pain Pantoprazole Sodium 40 mg 08/02/24 09:00 Pantoprazole 40 Mg Tablet PO DAILY FELTON Intake and Output 08/01/24 08/02/24 08/02/24 22:59 06:59 14:59 Other: Weight 99.79 kg 08/02/24 00:58 08/02/24 00:58
--- NOTE | 2024-08-02 12:02 | CA ---
Lexiscan Nuclear Stress Test Report Name: Arelis Ackerman Exam Date: 08/02/2024 11:10 Exam Location: [place] Stress Ht (in): 64 Wt (lb): 220 BSA: 2.04 Ordering Phys: Natacha Bright Referring Phys: GILLIAN Technologist: KOLBY Age: 58 Gender: F : 1965 Procedure CPT: Indications: Reflex order-Stress test ICD-10 Codes: Patient History: Chest pain, shortness of breath and palpitations Medications: Meds past 24 hrs: Pretest Chest Pain: STRESS TEST Lexiscan Protocol Exercise Duration (min:sec): 01:[address] Depressions (mm): Angina Score: Greene Score: Resting HR (bpm): 68 Peak HR (bpm): 94 Resting BP (mmHg): 115 / 81 Peak BP (mmHg): 129 / 83 MPHR: 164 Target HR: 139 % MPHR: 57 METS: 1.0 Total Dose: Peak Dose: Atropine: Double Product: 36055 BP Response: Stress Termination: INFUSION COMPLETE Stress Symptoms: DIFFICULTY IN BREATHING Stress Summary: ECG ANALYSIS Resting ECG: Normal sinus rhythm normal axis normal intervals Stress ECG: Patient was given intravenous Lexiscan as a protocol did not have chest pain or diagnostic ST segment depression CONCLUSIONS Negative stress test by EKG criteria Cardiolite portion of the stress test will be reported separately Dr. Saurav Sarmiento MD (Electronically Signed) Final Date: 02 August 2024 12:02
[2024-08-02 12:13] VITALS: RESP 16
[2024-08-02] MEDS: INSULIN LISPRO (HumaLOG) 100 UNIT/ML 10 mL VL SQ SCH (12:14)
--- NOTE | 2024-08-02 12:47 | NM ---
EXAMINATION TYPE: NM stress lexiscan cardiolite DATE OF EXAM: 08/02/2024 COMPARISON: CTA chest from yesterday CLINICAL INDICATION: Female, 58 years old with history of CP; history of tobacco use in the past. TECHNIQUE: After the intravenous administration of 10.43 mCi Tc 99m Sestamibi - Cardiolite resting S PECT images acquired 45 minutes post injection. The patient received 0.4mg Lexiscan, 26.5 mCi Tc 99m Sestamibi - Stress images obtained [address] injection FINDINGS: Review of stress and rest SPECT images demonstrates no distinct perfusion abnormality. Gated analysi s shows normal wall motion with an estimated left ventricular ejection fraction of 63 %. IMPRESSION: No scintigraphic evidence for reversible ischemia. [facility], , 08/02/2024 12:45 PM
--- NOTE | 2024-08-02 13:43 | P.DS ---
Providers Date of admission: 08/02/24 04:21 Attending physician: Janneth Payne Consults: 08/02/24 04:21 Consult Physician Routine Consulting Provider: Terrell Liang Consult Reason/Comments: chest pain Do you want consulting provider notified?: Yes Primary care physician: Angel Davies Hospital Course: Discharge Diagnosis: #Chest pain, ACS has been ruled out #Hyperglycemia Hospital Course: Patient is a 58-year-old female with history of thoracic aortic aneurysm, bicuspid aortic valve, Graves' disease, GERD presented to the ER complaining of substernal chest pain which woke her up midnight. Patient described pain as pressure type, 8/10, nonradiating, no alleviating or aggravating factors associated with shortness of breath or diaphoresis as well as nausea. Patient reports no previous episodes of chest pain. Patient denies any history of CAD and or CVA. Patient denies orthopnea, PND, swelling of legs. She follows up with Dr. Huerta for thoracic aortic aneurysm and bicuspid aortic wall. Earlier during the day yesterday patient had a CT angio of the chest for thoracic aortic aneurysm surveillance. CT of the chest show stable 4.3 cm thoracic aortic aneurysm with no evidence of intraperitoneal hematoma or dissection. At the time of the interview, her chest pain is 3/10 with no shortness of breath although she is on 3 L of oxygen via nasal cannula. Patient to undergo stress echocardiogram later in the day. Patient denies use of illicit drug. She is a former smoker quit 20 years ago but before that was smoking half a pack a day for 10 years. Patient admits to drinking 2 glasses of wine at least 3-4 times a week. Patient denies any withdrawal symptoms such as acute vision changes, tremors, auditory, visual, tactile hallucination. Family history is positive for CAD in grandfather. Initial laboratory evaluation in the ER shows WBC 8.6, hemoglobin 14.7, platelet count 228, sodium 143, potassium 4.0, chloride 105, BUN 9, creatinine 0.65, glucose 129, AST 36, ALT 35, ALP 75, troponin I less than 0.012 (repeat value less than 0.012), NT proBNP 66, TSH 2.09 Chest x-ray shows no acute cardiac pulmonary process. EKG shows sinus tachycardia with ventricular rate of 106 bpm, VA interval 174 ms, QRS duration 91 ms, QTc 386 ms. Cardiology was consulted. Patient underwent stress test which was negative. Acute coronary syndrome has been ruled out. Chest pain has resolved. Patient is hemodynamically stable and in medically optimized for discharge. Patient to follow-up with PCP and cardiology within 1 to 2 weeks Discharge disposition: Home Vital signs reviewed. Gen: patient is hemodynamically stable in no apparent distress, resting comfortably in bed Eyes: PERRLA, EOMI, no scleral injection or icterus HENT: normocephalic, atraumatic, good hearing acuity, moist mucous membranes Neck: full range of motion Resp: CTAB, no rales, rhonchi, or wheezes CVS: normal S1 and S2, no murmurs, rubs or gallops, no edema GI: soft, NTTP, ND, no hepatosplenomegaly : no suprapubic tenderness, no CVAT, braga catheter is not present MSK: no clubbing, no cyanosis, no noted contractures of extremities Skin: no noted rashes, petechiae; temperature of skin is appropriate Neuro: moving all extremities without signs of weakness, CN II-XII intact Psych: cooperative, euthymic mood, insight and judgment intact Dictation was produced using [employer] dictation software. Please excuse any grammatical, word or spelling errors. Patient Condition at Discharge: Stable Plan - Discharge Summary New Discharge Prescriptions: Continue Omeprazole 20 mg PO DAILY Levothyroxine Sodium [Synthroid] 200 mcg PO QAM Metoprolol Tartrate 25 mg PO BID Aspirin [Adult Low Dose Aspirin EC] 81 mg PO DAILY Progesterone, Micronized [Progesterone] 200 mg PO HS Cholecalciferol (Vitamin D3) [Vitamin D3 (3000 Iu)] 75 mcg PO DAILY Estradiol 0.05MG/24Hr Biwkptch [Vivelle-Dot 0.05 MG] 1 patch TRANSDERM Q3D I Caps 1 tab PO DAILY Discharge Medication List Levothyroxine Sodium [Synthroid] 200 mcg PO QAM 04/13/17 [History] Omeprazole 20 mg PO DAILY 04/13/17 [History] Aspirin [Adult Low Dose Aspirin EC] 81 mg PO DAILY 12/11/19 [History] Metoprolol Tartrate 25 mg PO BID 12/11/19 [History] Estradiol 0.05MG/24Hr Biwkptch [Vivelle-Dot 0.05 MG] 1 patch TRANSDERM Q3D 06/14/23 [History] Progesterone, Micronized [Progesterone] 200 mg PO HS 06/14/23 [History] Cholecalciferol (Vitamin D3) [Vitamin D3 (3000 Iu)] 75 mcg PO DAILY 08/02/24 [History] I Caps 1 tab PO DAILY 08/02/24 [History] Follow up Appointment(s)/Referral(s): Jessica Huerta MD [STAFF PHYSICIAN] - 1 Week Alvarez Solorzano MD [STAFF PHYSICIAN] - 1 Week Patient Instructions/Handouts: Noncardiac Chest Pain (DC) Activity/Diet/Wound Care/Special Instructions: Please follow-up with your PCP and cardiology within 1 to 2 weeks. If you do not have a PCP please contact the address below: [facility] Address: [address] [place] [id number] Discharge Disposition: HOME SELF-CARE
[2024-08-02 14:02] VITALS: BP 124/89; PULSE 77
[2024-08-03] MEDS ORDERED: ASPIRIN 325 MG TAB PO SCH (09:00)
== END 2024-08-02 14:01 | disposition home or self-care (01) ==
LOC: EC 00:20 → 6NMEDSUR 04:21
PROVIDERS: ADMIT Hospitalist; ATTEND Hospitalist
DX: R07.2 Precordial pain (principal); I71.20 Thoracic aortic aneurysm, without rupture, unspecified; I08.3 Combined rheumatic disorders of mitral, aortic and tricuspid valves; K21.9 Gastro-esophageal reflux disease without esophagitis; Q23.81 Bicuspid aortic valve; E05.00 Thyrotoxicosis with diffuse goiter without thyrotoxic crisis or storm; R73.9 Hyperglycemia, unspecified; R00.0 Tachycardia, unspecified; Z79.82 Long term (current) use of aspirin; Z79.890 Hormone replacement therapy; Z79.899 Other long term (current) drug therapy; Z88.5 Allergy status to narcotic agent; Z88.6 Allergy status to analgesic agent; Z87.891 Personal history of nicotine dependence; Z82.49 Family history of ischemic heart disease and other diseases of the circulatory system
CPT/HCPCS: 96374; 96375; 99285; 36415; 93005; 93017; 85379; 83880; 80053; 84443; 82150; 83690; 83735; 84484; 85025; 85610; 85730; 87636; 71046; 78452; G0378; A9500; J2270; J2785